=== PATIENT | male | born 1960 | race Caucasian/White ===

== ENCOUNTER 2018-01-18 22:14 | Emergency (ER) | payer OTHER ==
[2018-01-18 22:20] VITALS: BP 134/77
--- NOTE | 2018-01-18 23:15 | ED ---
Throat Pain/Nasal Congestion - HPI Summary HPI Summary: This is indytrey Jiménezblanca Austin documenting for attending Dr. Joe Watson MD. The patient is a 57 y/o M [place] [facility] [place] body sensation in his throat tonight after eating dinner. He had eaten fish, and then noticed that there was a feeling as if he had swallowed a fish scale or bone a little after eating dinner. He additionally c/o tickling sensation in his throat. He denies CP and cough. - History of Current Complaint Chief Complaint: EDForeignBodyEsophag Time Seen by Provider: 01/18/18 22:24 Hx Obtained From: Patient Onset/Duration: Sudden Onset, Lasting Minutes, Still Present Severity: Mild Associated Signs And Symptoms: Positive: FB Sensation Cough: None - Allergies/Home Medications Allergies/Adverse Reactions: Allergies Allergy/AdvReac Type Severity Reaction Status Date / Time antibitoic Allergy Unknown Uncoded 01/18/18 22:17 Reaction Details PMH/Surg Hx/FS Hx/Imm Hx Endocrine/Hematology History: Denies: Hx Diabetes Cardiovascular History: Denies: Hx Hypertension - Immunization History Immunizations Up to Date: Yes Infectious Disease History: No Infectious Disease History: Denies: Traveled Outside the [place] in Last 30 Days - Family History Known Family History: Negative: Diabetes - Social History Alcohol Use: Occasionally Substance Use Type: Reports: None Smoking Status (MU): Former Smoker Review of Systems Positive: Other - foreign body sensation Negative: Chest Pain Negative: Cough All Other Systems Reviewed And Are Negative: Yes Physical Exam - Summary Physical Exam Summary: Appearance: Well-appearing, Well-nourished, lying in bed comfortably Skin: Warm, dry, no obvious rash Eyes: sclera anicteric, no conjunctival pallor ENT: mucous membranes moist, pharynx appears normal Neck: Supple, nontender Respiratory: Clear to auscultation, no signs of respiratory distress Cardiovascular: Normal S1, S2. No murmurs. Normal distal pulses in tibial and radial bilaterally. Abdomen: Soft, nontender, normal active bowel sounds present Musculoskeletal: Normal, Strength/ROM Intact Neurological: A&Ox3, awake and alert, mentation is normal, speech is fluent and appropriate Psychiatric: affect is normal, does not appear anxious or depressed Triage Information Reviewed: Yes Vital Signs On Initial Exam: Initial Vitals Temp Pulse Resp BP Pulse Ox 97.9 F 60 15 134/77 97 07/28/18 22:18 01/18/18 22:18 01/18/18 22:18 01/18/18 22:18 01/18/18 22:18 Vital Signs Reviewed: Yes Diagnostics - Vital Signs Vital Signs Temp Pulse Resp BP Pulse Ox 01/18/18 22:18 97.9 F 60 15 134/77 97 - Laboratory Lab Statement: Any lab studies that have been ordered have been reviewed, and results considered in the medical decision making process. - Radiology Soft Tissue Neck XR Xray Interpretation: No Acute Changes - No acute findings of foreign body suspected. ED physician has reviewed this report. Radiology Interpretation Completed By: Radiologist Discharge - Sign-Out/Discharge Documenting (check all that apply): Patient Departure - Pt will be discharged home. - Discharge Plan Referrals: Alysia Rojo MD [Primary Care Provider] -
--- NOTE | 2018-01-19 07:30 | RAD ---
INDICATION: Foreign body sensation. Evaluate for facial bone COMPARISON: None TECHNIQUE: 2 views of the neck with soft tissue technique are submitted FINDINGS: No foreign body is identified. The airway appears widely patent. The prevertebral soft tissues are normal. There are osteoarthritic changes of the cervical spine with disc space narrowing at C3-C4 and degenerative disc space disease and spurring at C5-C7. IMPRESSION: NO RADIOPAQUE FOREIGN BODY IS SEEN. R0
== END 2018-01-19 00:08 | disposition home or self-care (01) ==
LOC: ED 22:14
DX: R09.89 Other specified symptoms and signs involving the circulatory and respiratory systems (principal)
CPT/HCPCS: 70360; 99282

== ENCOUNTER 2019-05-30 01:51 | Emergency (ER) | payer OTHER ==
[2019-05-30] MEDS ORDERED: NS 0.9% 1000 ML** 1,000 ML IV ONE ×2 (02:33→04:42)
--- NOTE | 2019-05-30 03:07 | ED ---
Syncope/Near Syncope - HPI Summary HPI Summary: This pt is a 58 Y/O M presenting to [facility] with a CC of a multiple syncopal episodes that occurred today at 0000. He states that earlier today he tweaked his back and self-medicated with bourbon. He states that he fell asleep at 2000 and then got up to pee and tripped over a bathroom scale and passed out after hitting the floor. On his way back from the bathroom his states that he passed out another 2 times and was diaphoretic. He states that he had to crawl from the bathroom to his bed. Later on in the night he got up again to use the bathroom and was assisted by his and the pt had another syncopal episode that resulted in the pt convulsing on the floor. He states that he has fainted 2 other times before this. He states that he has back pain that is currently rated a 6/10 from when he throughout his back prior to his syncopal episodes. He denies any CP, SOB, fevers, chills, N/V and a headache. He states that movement of any kind aggravate his back pain. He states no alleviating factors. He has a PMHx of a slipped disk in his thoracic vertebrae. - History Of Current Complaint Chief Complaint: EDSyncope Time Seen by Provider: 05/30/19 02:32 Hx Obtained From: Patient, Family/Prototype Carpenter - Onset/Duration: Sudden Onset, Resolved Timing: Intermittent Episode Lasting Context: Unwitnessed - first was unwitnessed, Witnessed Activity At Onset: Exertion Associated Head Trauma: No Aggravating Factor(s): Exertion, Other - movement aggravates his back pain Alleviating Factor(s): Spontaneous Resolution Associated Signs And Symptoms: Negative - CP, SOB, fevers, chills, N/V and a headache, Other - back pain Frequency: Episodes x___ - 3 - Allergies/Home Medications Allergies/Adverse Reactions: Allergies Allergy/AdvReac Type Severity Reaction Status Date / Time Sulfa (Sulfonamide Allergy Rash And Verified 05/30/19 02:30 Antibiotics) Itching PMH/Surg Hx/FS Hx/Imm Hx Previously Healthy: Yes Endocrine/Hematology History: Denies: Hx Diabetes Cardiovascular History: Denies: Hx Hypertension Musculoskeletal History: Reports: Other Musculoskeletal History - states that he has chronic slipped disks that he self-medicates for - Cancer History Hx Chemotherapy: No Hx Radiation Therapy: No - Surgical History Surgical History: Yes Surgery Procedure, Year, and Place: [facility] - Immunization History Immunizations Up to Date: Yes Infectious Disease History: No Infectious Disease History: Denies: Traveled Outside the [place] in Last 30 Days - Family History Known Family History: Negative: Diabetes - Social History Occupation: Employed Full-time Lives: With Family Alcohol Use: Daily Alcohol Amount: 3-4 daily Hx Substance Use: No Substance Use Type: Reports: None Hx Tobacco Use: Yes Smoking Status (MU): Former Smoker Review of Systems - ROS Summary Review of Systems Summary: Home Medications Medication Instructions Recorded Confirmed Type Ibuprofen TAB* [Advil TAB*] 400 - 600 mg PO BID PRN 07/15/17 05/30/19 History Positive: Skin Diaphoresis. Negative: Fever, Chills Negative: Chest Pain Negative: Shortness Of Breath Negative: Vomiting, Nausea Positive: Other - States low back pain Positive: Syncope - 3 episodes . Negative: Headache All Other Systems Reviewed And Are Negative: Yes Physical Exam - Summary Physical Exam Summary: General: Well-developed, Well-nourished male. No acute distress. HEENT: Normocephalic, Atraumatic. Eyes: Conjuctiva normal, PERRL. Ears: TMs within normal limits. Nares: (-) discharge, (-) erythema. Oropharynx: Clear, mucous membranes moist, (-) exudates. Neck: Soft, FROM, (-) lymphadenopathy, (-) thyromegaly, (-) JVD. Cardiovascular: Normal sinus rhythm, (-) murmur. Lungs: Clear to auscultation bilaterally (-) wheezes, (-) rales, (-) rhonchi. Abdomen: Soft, non-tender, non-distended, (-) organomegaly, normal bowel sounds. Back: (-) CVA tenderness Extremities: No edema. Skin: Warm, dry, (-) rash. Superficial abrasion to the left upper forehead Neuro: Alert and oriented x3, no focal deficits. Psychiatric: Mood normal, affect normal. Triage Information Reviewed: Yes Vital Signs On Initial Exam: Initial Vitals Temp Pulse Resp BP Pulse Ox 98.8 F 60 18 156/96 98 05/30/19 02:22 05/30/19 02:22 05/30/19 02:22 05/30/19 02:22 05/30/19 02:22 Vital Signs Reviewed: Yes Procedures - Sedation Patient Received Moderate/Deep Sedation with Procedure: No Diagnostics - Vital Signs Vital Signs Temp Pulse Resp BP Pulse Ox 05/30/19 02:48 165/81 05/30/19 02:22 98.8 F 60 18 156/96 98 - Laboratory Result Diagrams: 05/30/19 03:10 05/30/19 03:10 Lab Statement: Any lab studies that have been ordered have been reviewed, and results considered in the medical decision making process. - Radiology CXR Radiology Interpretation Completed By: ED Physician Summary of Radiographic Findings: No infiltrate or pleural effusion. Pending offical reivew. - CT Brain CT CT Interpretation Completed By: Radiologist Summary of CT Findings: No acute intracranial pathologies. ED carlaan has reviewed this report. - EKG 0436 Cardiac Rate: Bradycardia - 58 BPM EKG Rhythm: Sinus Bradycardia ST Segment: Normal Ectopy: None EKG Comparison: No Significant Change Summary of EKG Findings: EKG at 0436 reveals sinus bradycardia with rate of 58 BPM, no acute changes, no ischemic changes. This EKG was reviewed and interpreted by Dr. Patel at 0438 05/30/19. Course/Dx Course Of Treatment: 58-year-old male presented by ambulance after syncope. Patient admits to having multiple episodes of syncope in his life. Most of them to continue with pain over procedure events. States his low back started hurting severely today. He states it is a chronic problem that hasn't bothered him in years. Took ibuprofen without relief. Does admit to taking 4-5 drinks of bourbon. He got up in the night to go to the bathroom and had an episode of syncope. Questionable trauma to the head. He had up a second time after he crawled back to bed. Head syncope 2. Definite loss of consciousness according to . With some shaking jerking-like movements. Patient initially given Toradol. IV fluids. Significant improvement in symptoms of dizziness. Back pain persisted. Given patient Valium and Percocet upon discharge, to take at home once he is in bed. Advised no alcohol use with these medications. No driving or operating machinery. Patient discharged to home. Workup essentially negative. Follow-up with PCP. Follow-up sooner for any worsening symptoms. - Diagnoses Provider Diagnoses: Syncope, Alcohol intoxication, Dehydration, Back pain Discharge ED - Sign-Out/Discharge Documenting (check all that apply): Patient Departure - Discharge Plan Condition: Stable Disposition: HOME Prescriptions: Diazepam TAB(*) [Valium TAB(*)] 10 mg PO Q8H PRN #10 tab MDD 3 PRN Reason: severe pain oxyCODONE/Acetamin 5/325 MG* [Percocet 5/325 TAB*] 1 tab PO Q4H PRN #15 tab MDD 6 PRN Reason: severe pain Patient Education Materials: Dehydration (ED), Syncope (ED), Alcohol Intoxication (ED), Back Pain (ED) Referrals: Alysia Rojo MD [Primary Care Provider] - 3 Days Additional Instructions: Take the Percocet and Valium as needed throughout the weekend. DO NOT TAKE WITH ALCOHOL. PLEASE FOLLOW UP WITH YOUR PRIMARY CARE PROVIDER IN 1-3 DAYS OR AFTER THE WEEKEND AND RETURN TO THE EMERGENCY DEPARTMENT FOR ANY NEW OR WORSENING SYMPTOMS. - Billing Disposition and Condition Condition: STABLE Disposition: Home - Attestation Statements Document Initiated by Scribe: Yes Documenting Scribe: Felix Jeffers Provider For Whom Scribe is Documenting (Include Credential): Lawanda Patel MD Scribe Attestation: Felix Sal, indyed for Lawanda Patel MD on 05/30/19 at 2128. Scribe Documentation Reviewed: Yes Provider Attestation: The documentation as recorded by the Felix white accurately reflects the service I personally performed and the decisions made by me, Lawanda Patel MD Status of Scribe Document: Viewed
[2019-05-30 03:19] LABS: ABS Eosinophils 0.1 10^3/ul (0-0.6); ABS Lymphocytes 1.2 10^3/ul (1.0-4.8); ABS Monocytes 0.5 10^3/ul (0-0.8); ABS Neutrophils 3.3 10^3/ul (1.5-7.7); Eosinophil % 1.7 %; Hematocrit 43 % (42-52); Hemoglobin 14.9 g/dL (14.0-18.0); Mean Corpuscular HGB Conc 34 g/dL (31-36); Mean Corpuscular Hemoglobin 29 pg (27-31); Mean Corpuscular Volume 86 fL (80-94); Mean Platelet Volume 8.1 fL (7.4-10.4); Platelet Count 155 10^3/uL (150-450); Red Blood Count 5.05 10^6 /uL (4.18-5.48); Red Cell Distribution Width 14 % (10-15); White Blood Count 5.1 10^3/uL (3.5-10.8)
[2019-05-30 03:24] LABS: INR 0.97 (0.82-1.09)
[2019-05-30] MEDS ORDERED: Ketorolac INJ* 30 MG/ML 1 ML VIAL IV PUSH ONE (03:32)
[2019-05-30 03:36] LABS: ALT 24 U/L (7-52); AST 23 U/L (13-39); Albumin/Globulin Ratio 1.7 (1-3); Alkaline Phosphatase 51 U/L (34-104); Anion Gap 7 mmol/L (2-11); BUN/Creatinine Ratio 15.5 (8-20); Blood Urea Nitrogen 15 mg/dL (6-24); CO2 Carbon Dioxide 24 mmol/L (22-32); Calcium 9.3 mg/dL (8.6-10.3); Chloride 107 mmol/L (101-111); EGFR African American 95.9 (>60); EGFR Non-African American 79.2 (>60); Globulin 2.4 g/dL (2-4); Glucose 100 mg/dL (70-100); Magnesium 2.2 mg/dL (1.9-2.7); Sodium 138 mmol/L (135-145); Total Protein 6.4 g/dL (6.4-8.9)
[2019-05-30 03:38] LABS: Troponin I 0.01 ng/mL (<0.03)
[2019-05-30 03:56] LABS: Alcohol < 10 mg/dL (<10)
[2019-05-30 04:11] LABS: TSH (Thyroid Stimulating Horm) 2.46 mcIU/mL (0.34-5.60)
[2019-05-30 04:28] LABS: Urine Appearance Clear; Urine Bilirubin Negative (Negative); Urine Blood Negative (Negative); Urine Color Straw; Urine Glucose Negative (Negative); Urine Ketones Negative (Negative); Urine Nitrite Negative (Negative); Urine Protein Negative (Negative); Urine Specific Gravity 1.009 (1.010-1.030); Urine Urobilinogen Negative (Negative)
[2019-05-30 04:48] LABS: Urine Benzodiazepine Screen None Detected (None Detect); Urine Opiates Screen None Detected (None Detect)
[2019-05-30] MEDS ORDERED: oxyCODONE/Acetamin 5/325 MG* TAB PO ONE (06:19)
[2019-05-30] MEDS ORDERED: Diazepam TAB(*) 5 MG PO ONE (06:19)
[2019-05-30 06:41] VITALS: BP 128/74
== END 2019-05-30 06:30 | disposition home or self-care (01) ==
LOC: ED 01:51
DX: R55 Syncope and collapse (principal); F10.929 Alcohol use, unspecified with intoxication, unspecified; E86.0 Dehydration; M54.9 Dorsalgia, unspecified; Z87.891 Personal history of nicotine dependence; Z88.2 Allergy status to sulfonamides
CPT/HCPCS: 36415; 70450; 71045; 80053; 80307; 80320; 81003; 83605; 83735; 83880; 84443; 84484; 85025; 85610; 93005; 96361; 96374; 99284; A9270-GY; G0480; J1885